=== PATIENT | female | born 1955 | race Caucasian/White ===

== ENCOUNTER → 2024-03-31 | Outpatient (CLI) | payer MEDICARE, SELFPAY ==
--- NOTE | 2024-03-31 12:08 | RAD_ITS ---
EXAM: XR RIGHT HIP WITH PELVIS , 4 VIEWS CLINICAL INDICATION: RIGHT HIP PAIN TECHNIQUE: Two views of the pelvis, 2 views of the right hip. COMPARISON: No relevant prior studies available. FINDINGS: BONES/JOINTS: No displaced fracture. No destructive or sclerotic lesions. Note that overlapping bowel shadows may however obscure fine detail. Sacroiliac joint is unremarkable. No widening of the pubic symphysis there is mild sclerosis and narrowing at the pubic symphysis. The articular structures are unremarkable. SOFT TISSUES: Unremarkable. No soft tissue swelling or gas. RAD/HIP, UNI W/ Pelvis 2-3 Views IMPRESSION: No evidence of displaced pelvic or hip fracture. No acute findings. Electronically Signed: Yelitza Sawyer MD at 4:22 EDT ,
== END | disposition home or self-care (01) ==
LOC: RAD 12:04
PROVIDERS: Referring Provider Anesthesiology Pain Medicine; Visit Provider Anesthesiology Pain Medicine
DX: M25.551 Pain in right hip (principal)
CPT/HCPCS: 73502